=== PATIENT | female | born 1990 | race African-American/Black ===

== ENCOUNTER 2018-03-16 21:25 | Emergency (ER) | payer OTHER ==
[~2018-03-16] VITALS: Ht 152.4 cm; Wt 75.0 kg
[2018-03-17 00:34] VITALS: BP 117/78
== END 2018-03-17 00:34 | disposition home or self-care (01) ==
LOC: ER 21:25
DX: R05 Cough (principal); R51 Headache
CPT/HCPCS: 99283

== ENCOUNTER 2020-06-07 18:03 | Emergency (ER) | payer OTHER ==
[~2020-06-07] VITALS: Ht 154.9 cm; Wt 83.0 kg
[2020-06-07] MEDS ORDERED: ACETAMINOPHEN WITH CODEINE 120-12MG/5ML UDC PO ONE (19:00)
[2020-06-07] MEDS ORDERED: GUAIFENESIN-DM 200MG-20MG/10ML UDC PO ONE (19:15)
[2020-06-07] MEDS ORDERED: ALBU6.7H9 INH (19:19)
[2020-06-07] MEDS ORDERED: P50 MT (19:19)
[2020-06-07] MEDS ORDERED: GUAI118S49 MT (19:20)
[2020-06-07 19:34] VITALS: BP 109/67
== END 2020-06-07 19:55 | disposition home or self-care (01) ==
LOC: ER 18:03
DX: R05 Cough (principal); Z90.49 Acquired absence of other specified parts of digestive tract
CPT/HCPCS: 71045; 81025; 99283

== ENCOUNTER 2024-01-04 21:30 | Emergency (ER) | payer OTHER ==
[~2024-01-04] VITALS: Ht 160 cm; Wt 70.0 kg
[~2024-01-04 21:30] MED LIST: ALBU6.7H3 INH; GUAI118S49 MT; P50 MT
[2024-01-04 21:36] VITALS: O2SAT 97
[2024-01-04] MEDS: BACITRACIN 14GM TUBE TOP ONE (22:29)
[2024-01-04] MEDS: ACETAMINOPHEN 325MG TABLET PO NR (23:00)
[2024-01-04 23:25] LABS: BASOPHILS % 0.4 % (0.0-2.0); EOSINOPHILS % 0.5 % (0.0-5.0); HEMATOCRIT. 41.2 % (36.0-48.0); HEMOGLOBIN. 13.9 g/dL (12.0-16.0); LYMPHOCYTES % 13.5 % (20.0-50.0); MEAN CORPUSCULAR HEMOGLOBIN 30.9 pg (28.0-32.0); MEAN CORPUSCULAR HGB CONC 33.6 g/dL (31.0-37.0); MEAN CORPUSCULAR VOLUME 91.7 fL (81.0-99.0); MEAN PLATELET VOLUME 10.1 fl (7.4-10.4); MONOCYTES % 3.7 % (2.0-8.0); NEUTROPHILS % 81.9 % (40.0-76.0); PLATELET 219 x1000/uL (130-400); RED BLOOD CELL COUNT 4.49 mill/uL (4.2-5.4); RED CELL DISTRIBUTION WIDTH 13.3 % (11.6-14.6); WHITE BLOOD COUNT 8.7 x1000/uL (4.5-11.0)
[2024-01-04 23:26] LABS: CHLORIDE 108 mEq/L (98-107); POTASSIUM 3.9 mEq/L (3.5-5.1); SODIUM 141 mEq/L (136-145)
[2024-01-04 23:27] LABS: CARBON DIOXIDE 25 mEq/L (21-32)
[2024-01-04 23:28] LABS: CALCIUM 9.5 mg/dL (8.7-10.4)
[2024-01-04 23:32] LABS: HCG SCREEN NEGATIVE
[2024-01-04 23:33] LABS: CREATININE 0.8 mg/dL (0.6-1.0); GLUCOSE 142 mg/dL (70-105); UREA NITROGEN BLOOD 8 mg/dL (9-23)
[2024-01-04 23:39] LABS: TROPONIN I HIGH SENSITIVITY < 4 ng/L (3.0-34)
[2024-01-05] MEDS: TETANUS, DIPHTHERIA, PERTUSSIS VAC/PF 0.5ML (>10YR OLD) IM ONE (00:04)
[2024-01-05 00:15] VITALS: BP 118/77; PULSE 87; RESP 19; TEMP 37.16964; O2SAT 98
[2024-01-05] MEDS ORDERED: ONDANSETRON 4MG ODT PO ONE (00:15)
== END 2024-01-05 00:22 | disposition home or self-care (01) ==
LOC: ER 21:30
DX: S50.812A Abrasion of left forearm, initial encounter (principal); Z90.49 Acquired absence of other specified parts of digestive tract; X58.XXXA Exposure to other specified factors, initial encounter; Y93.89 Activity, other specified; Y92.89 Other specified places as the place of occurrence of the external cause; Y99.8 Other external cause status
CPT/HCPCS: 99284; 80048; 84703; 85025; 84484; 36415; 73090; 90715; 90471; Q0162